=== PATIENT | male | born 1965 | race Caucasian/White ===

== ENCOUNTER 2017-01-15 13:49 | Emergency (ER) | payer MEDICAID, OTHER ==
[~2017-01-15] VITALS: Ht 167.6 cm; Wt 71.5 kg
[~2017-01-15 13:49] MED LIST: OMEG1CAP2 PO
[2017-01-15 14:01] VITALS: Ht 167.6 cm; Wt 71.5 kg
[2017-01-15] MEDS ORDERED: IBUP-1542 PO (16:32)
--- NOTE | 2017-01-16 00:06 | ERA ---
ER Documentation Chief Complaint Date/Time DATE: 01/15/17 TIME: 23:59 Chief Complaint l shoulder pain x 1 month HPI Patient presents with mild right shoulder pain and limited range of motion for the past 1 month. 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 Patient describes numbness and tingling in the lower part of his right arm. Describes not being able to sleep secondary to pain in the right shoulder. Patient describes the symptoms as intermittent with decreased range of motion pain persist secondary to pain with active range of motion. Patient denies loss of motion or sensation in the fingers. Has taken Tylenol with minimal relief. ROS All systems reviewed and are negative except as per history of present illness. Medications Home Meds Active Scripts Ibuprofen* (Motrin*) 600 Mg Tab, 600 MG PO Q6H Y for PAIN AND OR ELEVATED TEMP, #30 TAB Prov:DANNY ZAVALA PA-C 01/15/17 [place]-3 Acid Ethyl Esters (Lovaza) 1 Gm Capsule, 2 GM PO BID for 60 Days, CAP Prov:ALEXANDRO BAY 04/11/16 Allergies Allergies: Coded Allergies: No Known Allergy (Unverified , 04/10/16) PMhx/Soc Medical and Surgical Hx: pt denies Medical Hx, pt denies Surgical Hx History of Surgery: No Anesthesia Reaction: No Hx Neurological Disorder: No Hx Respiratory Disorders: No Hx Cardiac Disorders: No Hx Psychiatric Problems: No Hx Miscellaneous Medical Probl: No Hx Alcohol Use: Yes ("FEW BEERS EVERY NIGHT") Hx Substance Use: No Hx Tobacco Use: No Physical Exam Vitals Vital Signs Date Time Temp Pulse Resp B/P Pulse Ox O2 Delivery O2 Flow Rate FiO2 01/15/17 14:01 97.7 82 18 124/75 97 Physical Exam Const: Obese 51-year-old male who is in no acute distress Head: Atraumatic Eyes: Normal Conjunctiva ENT: Normal External Ears, Nose and Mouth. Neck: Full range of motion..~ No meningismus. Resp: Clear to auscultation bilaterally Cardio: Regular rate and rhythm, no murmurs Abd: Soft, non tender, non distended. Normal bowel sounds Skin: No petechiae or rashes Back: No midline or flank tenderness Ext: Negative Tinel sign negative Phalen sign negative Adson's test. Negative drop arm test sign. Negative impingement. Positive empty can test. No pain with forearm supination or pronation. Decreased range of motion by 50% in all directions except for internal range of motion which was only limited by about 20%. Neurovascularly intact bilaterally with mild symptoms of taking in the right arm. Neur: Awake and alert Psych: Normal Mood and Affect Procedures/MDM Patient's history of being a ground service equipment mechanic and history of overuse of the right arm as well as symptoms of pain suggest a rotator cuff tendinopathy with associated radiculopathy. Patient was advised to see his PCP for more formal referral to an director of orthopedics to evaluate the soft tissues of the shoulder and arm. Departure Diagnosis: Primary Impression: Shoulder injury Condition: Stable Patient Instructions: Tendonitis Referrals: [facility] YOU HAVE RECEIVED A MEDICAL SCREENING EXAM AND THE RESULTS INDICATE THAT YOU DO NOT HAVE A CONDITION THAT REQUIRES URGENT TREATMENT IN THE EMERGENCY DEPARTMENT. FURTHER EVALUATION AND TREATMENT OF YOUR CONDITION CAN WAIT UNTIL YOU ARE SEEN IN YOUR DOCTORS OFFICE WITHIN THE NEXT 1-2 DAYS. IT IS YOUR RESPONSIBILITY TO MAKE AN APPOINTMENT FOR FOLOW-UP CARE. IF YOU HAVE A PRIMARY DOCTOR --you should call your primary doctor and schedule an appointment IF YOU DO NOT HAVE A PRIMARY DOCTOR YOU CAN CALL OUR PHYSICIAN REFERRAL HOTLINE AT IF YOU CAN NOT AFFORD TO SEE A PHYSICIAN YOU CAN CHOSE FROM THE FOLLOWING [facility] [address] [facility]. [facility] [address] [place]. [facility] [address] [facility] [facility] [address] [facility] [facility] [address] [facility]. [facility]. [address] [facility]. [facility] YOU HAVE RECEIVED A MEDICAL SCREENING EXAM AND THE RESULTS INDICATE THAT YOU DO NOT HAVE A CONDITION THAT REQUIRES URGENT TREATMENT IN THE EMERGENCY DEPARTMENT. FURTHER EVALUATION AND TREATMENT OF YOUR CONDITION CAN WAIT UNTIL YOU ARE SEEN IN YOUR DOCTORS OFFICE WITHIN THE NEXT 1-2 DAYS. IT IS YOUR RESPONSIBILITY TO MAKE AN APPOINTMENT FOR FOLOW-UP CARE. IF YOU HAVE A PRIMARY DOCTOR --you should call your primary doctor and schedule and appointment IF YOU DO NOT HAVE A PRIMARY DOCTOR YOU CAN CALL OUR PHYSICIAN REFERRAL HOTLINE AT . IF YOU CAN NOT AFFORD TO SEE A PHYSICIAN YOU CAN CHOSE FROM THE FOLLOWING COUNT INCLUDES THE [facility] INSTITUTIONS: [facility] [address] [place] [address] [facility] [address] [place] [address] [facility] [address] [place] [address] [facility] Urgent Care 7 a.m.- 11 p.m. Every Day of the Week NO APPOINTMENT OR AUTHORIZATION NEEDED SO [facility] Hours: Mon-Fri 9:00 AM - 5:00 PM Additional Instructions: Unable to rule out tendon or ligament injury at this time. Patient will most likely benefit from advanced imaging and an director of orthopedics. Patient is advised to follow-up with his PCP for referral. DANNY ZAVALA PA-C Jan 16, 2017 00:05
== END 2017-01-15 16:45 | disposition home or self-care (01) ==
LOC: FTE 13:49
DX: S49.91XA Unspecified injury of right shoulder and upper arm, initial encounter (principal); X58.XXXA Exposure to other specified factors, initial encounter; Y92.9 Unspecified place or not applicable
CPT/HCPCS: 99283